=== PATIENT | female | born 1990 | race Caucasian/White ===

== ENCOUNTER 2020-09-18 06:29 | Inpatient (IN) | payer OTHER, SELFPAY ==
[2020-09-18] VITALS (80 sets, daily range): BP systolic 101–150; BP diastolic 39–135; PULSE 85–158; RESP 16; TEMP 36.6–36.8; O2SAT 96–100; BMI 44.7
[2020-09-18 06:56] LABS: Basophils Percent Auto 0.4 % (0.2-1.2); Eosinophils Absolute Auto 0.1 K/mm3 (0-0.3); Hematocrit 37.3 % (37.0-47.0); Hemoglobin 12.9 g/dL (12.0-15.0); Immature Granulocyte Absolute 0.19 K/mm3 (0.00-0.031); Immature Granulocyte Percent A 2.3 % (0-0.5); Lymphocytes Absolute Auto 1.52 K/mm3 (0.9-3.2); Lymphocytes Percent Auto 18.6 % (18.3-44.2); Mean Corpuscular HGB Conc 34.6 g/dl (32-36); Mean Corpuscular Hemoglobin 30.6 pg (26-34); Mean Corpuscular Volume 88.4 fl (80-100); Mean Platelet Volume 11.5 fl (7.4-10.4); Monocytes Absolute Auto 0.6 K/mm3 (0.1-0.6); Monocytes Percent Auto 7.5 % (2.6-8.5); Neutrophils Absolute Auto 5.7 K/mm3 (1.3-6.7); Neutrophils Percent Auto 70.2 % (45.5-73.1); Platelet Count Result 157 k/mm3 (150-375); Red Blood Count 4.22 M/mm3 (4.2-5.4); Red Cell Distribution Width 13.2 % (11.5-14.5); White Blood Count 8.2 K/mm3 (4.5-10.0)
[2020-09-18] MEDS: OXYTOCIN 30 UNITS/NS 500 ML 30 UNITS/500 ML BAG IV CONT (06:57)
[2020-09-18] MEDS: LACTATED RINGERS 1,000 ML 125 ML IV CONT ×3 (06:58→14:13)
[2020-09-18] MEDS: AMPICILLIN 2 GM/NS 100 ML 2 GM/100 ML BAG IVPB (06:58)
--- NOTE | 2020-09-18 07:09 | LDADM ---
This patient, Lizeth Anthony, was admitted to Labor/Delivery/Recovery 104 on 09/18/20 at 06:29. Plans for labor, pain management and were discussed with patient. Patient/family oriented to hospital policies and general routines including ID bracelet, bed and alarms, visiting hours, pain management, procedures, bathroom and other care routines, personal items, smoking policy, room service/diet and guest tray routines, security routines, and visiting hours. Patient/Family are encouraged to report perceived risks to care and to ask questions if they do not understand what they are told or what they should do. See OBIX for further documentation.
[2020-09-18 07:55] LABS: Rapid Plasma Reagin Non-Reactive (NonReactive)
--- NOTE | 2020-09-18 08:40 | WPDOBADMIT ---
Obstetrics - Admit Note Admission Note: record reviewed. Additions to the history and/or subsequent changes in the physical findings follow. 30 y/o at 39 3/7 here for scheduled induction of labor. GBS pos. No leakage of fluid. Irregular contractions. No vaginal bleeding. AVSS NST reactive TOCO: contractions every 2-5 min ABD soft, nontender, gravid, vertex EXT nontender Cervix 3/50/-2. AROM with clear fluid. IUPC and FSE placed. A: IUP at term with favorable cervix. GBS pos. P: Ampicillin. Oxytocin. Anticipate .
[2020-09-18] MEDS: AMPICILLIN 1 GM/NS 50 ML 1 GM/50 ML BAG IVPB (11:13)
--- NOTE | 2020-09-18 12:58 | P.PNAN_ITS ---
Anes - Eval Pre Procedure Procedure: Labor epidural Date/Time: 09/18/20 12:58 Surgeon: aRchael Preop Diagnosis: Abd pain with contractions Pre Op Diagnosis: iol Patient Data Age: 30 Gender: F Height: 5 ft 5 in Weight: 122 kg Last Vital Signs Temp 98.2 F 09/18/20 11:13 Pulse 90 09/18/20 12:31 BP 120/85 09/18/20 12:31 Allergies Allergy/AdvReac Type Severity Reaction Status Date / Time No Known Allergies Allergy Unverified 02/09/17 14:43 Home Medications Medication Instructions Recorded Confirmed Type PNV cmb#95-ferrous fumarate-FA 1 tablet PO DAILY 08/29/20 08/29/20 History [] Laboratory Tests 09/18/20 09/18/20 09/18/20 06:49 06:49 06:49 WBC 8.2 K/mm3 K/mm3 (4.5-10.0) RBC 4.22 M/mm3 M/mm3 (4.2-5.4) Hgb 12.9 g/dL g/dL (12.0-15.0) Hct 37.3 % % (37.0-47.0) MCV 88.4 fl fl (80-100) MCH 30.6 pg pg (26-34) MCHC 34.6 g/dl g/dl (32-36) RDW 13.2 % % (11.5-14.5) Plt Count 157 k/mm3 k/mm3 (150-375) MPV 11.5 fl H fl (7.4-10.4) Immature Gran % (Auto) 2.3 % H % (0-0.5) Neut % (Auto) 70.2 % % (45.5-73.1) Lymph % (Auto) 18.6 % % (18.3-44.2) [place] % (Auto) 7.5 % % (2.6-8.5) Eos % (Auto) 1.0 % % (0-4.4) Baso % (Auto) 0.4 % % (0.2-1.2) Lymph # (Auto) 1.52 K/mm3 K/mm3 (0.9-3.2) [place] # (Auto) 0.6 K/mm3 K/mm3 (0.1-0.6) Eos # (Auto) 0.1 K/mm3 K/mm3 (0-0.3) Baso # (Auto) 0.0 K/mm3 K/mm3 (0.0-0.1) Abs Immat Gran (auto) 0.19 K/mm3 H K/mm3 (0.00-0.031) Absolute Neuts (auto) 5.7 K/mm3 K/mm3 (1.3-6.7) Absolute Nucleated RBC 0.0 K/mm3 K/mm3 (0.0-0.012) Nucleated RBC % 0.0 % % (0.0-0.2) RPR Non-reactive (NonReactive) Blood Type O Positive Antibody Screen Negative Patient hx anesthesia problems: none Family hx anesthesia problems: none PMFSH Past Medical History Medical History (Updated 09/18/20 @ 12:59 by David Reveles CRNA) Morbid obesity Family History Family History Other No pertinent family history Social History Social History Smoking status: Never smoker Substance use: never Gender identity (if verbalized by the patient): Female Spiritual care concerns: No Exam Day of Procedure 09/18/20 12:58 Patient weight: morbidly obese Heart: regular rate and rhythm Airway: Mallampati scale class II Neurological: alert and oriented
--- NOTE | 2020-09-18 12:59 | PM.OBPNLAB ---
Pain Control Date/time seen: 09/18/20 12:59 Comments: Feeling more painful contractions. Pelvic Exam Dilation (cm): 5 Effacement (%): 80 station: -2 Contractions Contraction frequency: 3 Status status: Category l Assessment and Plan Comments: Continue labor.
--- NOTE | 2020-09-18 15:15 | P.PCNOB_ITS ---
OB - Delivery Note Procedure Delivery date: 09/18/20 Procedure: Induction of labor with Induction method: AROM and per pitocin protocol Delivery augmentation: pitocin Delivery monitor: external FHT, external uterine, internal FHT and internal uterine Route of delivery: Laceration Description: Vaginal - 1st Degree Delivery repair: vicryl (3-0) Specimen: Yes (cord blood) Quantitative Blood Loss (ml): 180 Anesthesia type: Epidural Disposition: PACU Complications: None Narrative: 30 y/o at 39 3/7 weeks gestation who [facility]. Oxytocin was administered intravenously. She received ampicillin for GBS colonization. Amniotomy was performed with return of clear fluid. She received an epidural for pain control. Her labor progressed and her cervix dilated completely. She pushed with good effort and delivered the infant's head to the perineum, followed by the body. The nose and mouth were bulb suctioned. After a delay, the cord was clamped and cut. The was handed off the field. Cord blood was collected. The placenta delivered spontaneously and was grossly normal in appearance. The usual 3 vessel cord was noted. A shallow, distal vaginall laceration was sustained. This was reapproximated using 3 0 Vicryl in a single figure of eight suture. Excellent hemostasis resulted as did excellent reapproximation of the normal anatomy. Needle and instrument counts were correct. The patient was taken to recovery room in stable condition. The infant went to the nursery in stable condition. I was present and scrubbed for the entire delivery. [place] Baby Date of : 09/18/20 Time of : 14:53 Weeks of gestation at delivery: 39 gender: Male Weight (pounds): 8 Weight (ounces): 5 presentation: vertex position: Left Occiput Anterior Placenta delivery description: Spontaneous and Normal Configuration cord vessel description: 3 Vessels score one minute: 8 score five minutes: 9
[2020-09-18] MEDS: OXYTOCIN 30 UNITS/NS 500 ML 30 UNITS/500 ML BAG 125 UNITS IV CONT (15:33)
--- NOTE | 2020-09-18 18:00 | OBPPTRN ---
1712 Patient transferred to post room #284 via W/C. Support person present. Oriented to unit, room, information board, rooming in, admission packet and security measures. Patient verbalizes understanding.
[2020-09-19] MEDS: IBUPROFEN 600 MG TABLET PO ×3 (05:15→22:25)
[2020-09-19 05:31] LABS: Hematocrit 35.5 % (37.0-47.0); Hemoglobin 12.4 g/dL (12.0-15.0)
--- NOTE | 2020-09-19 07:34 | WPDANLDPN2 ---
Anes-Prog Note L&D Date/Time: 09/19/20 07:34 Comfortable throughout: labor Neuraxial method: epidural Epidural/Spinal procedure site: clean & non-tender Neuro status: Neuro function grossly intact. Cardiovascular status: normal Respiratory status: normal Airway patency: baseline Mental status: baseline Post-Op hydration status: normal Vital Signs: Last Vital Signs Temp 36.7 C 09/18/20 20:45 Pulse 90 09/18/20 20:45 Resp 16 09/18/20 20:45 BP 124/75 09/18/20 20:45 Pulse Ox 99 09/18/20 20:45 Pain score (VAS): 0/10 I/O: Intake & Output 09/18/20 09/18/20 09/19/20 15:59 23:59 07:59 Intake Total 1999 Output Total 45 Balance 1999 Post-procedural complaints: none Patient feedback: Patient satisfied with anesthetic care.
[2020-09-19 07:50] VITALS: BP 134/87; PULSE 84; RESP 18; TEMP 36.5; O2SAT 98
[2020-09-19] MEDS: DOCUSATE SODIUM 100 MG CAPSULE PO (08:06)
[2020-09-19] MEDS: MULTIVIT/MIN/PREN/FOL AC/IRON TABLET 1 TAB PO (08:06)
[2020-09-19 08:10] VITALS: PULSE 90; RESP 16; O2SAT 99
--- NOTE | 2020-09-19 08:49 | P.PNOB_ITS ---
OB - PN: Subj Subjective Date/time seen: 09/19/20 08:49 Narrative: Pain OK. Would like circumcision for son. OB - PN: Obj Data Labs CBC & Chem 7: 09/19/20 05:17 Labs: Laboratory Results - last 24 hr 09/19/20 05:17 Hgb 12.4 Hct 35.5 L OB - PN A/P Plan Comments: A: PPD#1, doing well. P: Routine care. Reviewed circ. Exam 2 Psych: Other: AVSS ABD soft, nontender, fundus firm EXT nontender
--- NOTE | 2020-09-19 12:10 | PC.NURSE ---
Mother is able to independently latch infant with appropriate positioning/alignment. Mother reports this to be 4th child to and is pleased with infant's eagerness. She denies any nipple discomfort, is feeding as required and waking infant to feed if needed. Infant is feeding as required in the past 24 hours, and is currently meeting outcomes for weight, output, jaundice and feeding frequencies. Mother states she feels confident to continue effective at home. Reviewed transition to breast milk, signs of adequate intake, and engorgement/relief. Instructed to call ICP if intake/output less than required. Reviewed regular medications mother is taking. Information provided per Katya. Reviewed community resources on the [facility] website and in the Mom/Baby guide. Information on outpatient services provided. Mother has no further questions at this time.
--- NOTE | 2020-09-19 12:39 | PM.OBDSVD ---
DS: Admitting Diagnosis Admitting Diagnosis Admitting Diagnosis: IUP at term Favorable cervix DS: Discharge Diagnosis Discharge Diagnosis (1) (normal spontaneous vaginal delivery): Code(s): O80 - Encounter for full-term uncomplicated delivery Status: Acute OB - DS: Summary OB Procedures : None OB Procedures Intrapartum: Spontaneous Vag Delivery OB Procedures: : None DS: Data Data Completed and Pending Labs on day of discharge: Labs from last 24 hours 09/19/20 05:17 Hgb 12.4 Hct 35.5 L Discharge Plan Discharge Attending physician on discharge: Rachael Discharging Clinician: Graham Cano Patient Disposition: Home, Self-Care Activity: pelvic rest Diet: regular Discharge Instructions: Call or return if temperature above 100.4? F, increased abdominal pain, increased vaginal bleeding or any new problems. Stand Alone Forms: General Discharge Information Follow-up/Referrals: Graham Cano MD [Physician] - 6 Weeks Discharge Medications: New ibuprofen 600 mg tablet 600 mg PO Q6H PRN (Reason: cramps) Qty: 30 RF: 0 No Action PNV cmb#95-ferrous fumarate-FA [] 28 mg iron- 800 mcg Tablet 1 tablet PO DAILY RF: 0 Date of admission: 09/18/20 06:29 Primary Care Provider: Joshua,Diane Admitting Provider: Graham Cano Attending physician on admission: Graham Cano
[2020-09-19 21:00] VITALS: BP 129/75; PULSE 90; RESP 16; TEMP 36.3; O2SAT 99
[2020-09-20] MEDS: IBUPROFEN 600 MG TABLET PO ×2 (04:17→11:46)
[2020-09-20 07:55] VITALS: BP 140/88; PULSE 95; RESP 18; TEMP 36.2; O2SAT 100
[2020-09-20] MEDS: MULTIVIT/MIN/PREN/FOL AC/IRON TABLET 1 TAB PO (08:31)
--- NOTE | 2020-09-20 09:00 | PC.NURSE ---
Mother reports her milk is in, reviewed self expression to soften before feeding to assist with latch and maintaining. Mother denies discomfort and has not further questions/concerns this time.
--- NOTE | 2020-09-20 12:40 | PM.OBPNVD ---
OB - PN: Subj Subjective Date/time seen: 09/20/20 12:40 Narrative: Pain OK. Wound up staying overnight last night. Would like to go home. OB - PN: Obj Data Labs CBC & Chem 7: 09/19/20 05:17 OB - PN A/P Plan Comments: A: PPD#2, doing well. P: Home to f/u 6 weeks. Exam Psych: Other: AVSS ABD soft, nontender, fundus firm EXT nontender
[2020-09-21 10:42] VITALS: BP 131/84; PULSE 91; RESP 20; TEMP 36.9; O2SAT 98
== END 2020-09-20 13:47 | disposition home or self-care (01) | DRG 807 ==
LOC: ANHLDR 06:32 → ANHOB2 17:17
PROVIDERS: Admitting Provider Obstetrics & Gynecology; PCP Physician Assistant; Visit Provider Obstetrics & Gynecology
DX: O99.824 Streptococcus B carrier state complicating childbirth (principal); Z37.0 Single live birth; O99.214 Obesity complicating childbirth; E66.01 Morbid (severe) obesity due to excess calories; O70.0 First degree perineal laceration during delivery; Z3A.39 39 weeks gestation of pregnancy
CPT/HCPCS: 36415; 85014; 85018; 85025; 86592; 86850; 86900; 86901; A9270; J0290; J2590; J2795; J7120